=== PATIENT | female | born 1945 | race Caucasian/White ===

== ENCOUNTER 2021-05-01 11:24 | Emergency (ER) | payer MEDICARE ==
[2021-05-01] MEDS ORDERED: Ondansetron 4 MG/2 ML SDV IVPUSH ONE (11:48)
[2021-05-01] MEDS ORDERED: Acetaminophen 325 MG Tab PO ONE (11:48)
--- NOTE | 2021-05-01 11:57 | EDM.PDOC ---
ED HPI GENERAL MEDICAL PROBLEM - General Chief Complaint: General Stated Complaint: [facility] Time Seen by Provider: 05/01/21 11:40 Source of Information: Reports: Patient, EMS History Limitations: Reports: Altered Mental Status (Cruz is mildly confused and disoriented to time) - History of Present Illness INITIAL COMMENTS - FREE TEXT/NARRATIVE: 76-year-old female presents to the ED per [facility]. It is unclear who called the ambulance for her. She presents markedly febrile and is pleasantly confused at this time. She is unsure of dates and is disoriented to time. She is unsure how long she has been ill but she states at least 2 days. She has been taking some fluids but no solids for several days. She has a mild nonproductive cough. Denies sore throat. Denies headache. Denies any dysuria urgency frequency or diarrhea. She is nauseated all the time which limits his ability to eat. She is unclear exactly when her was diagnosed with COVID-19 in March. She came in for was middle beginning or recently. She states she was with him the whole time and did not contract COVID-19 illness. She has not been vaccinated Onset: Unknown/Unsure (Has been ill primarily bedridden for the last 2 to 3 days for sure.) Onset Date: 04/29/21 (She believes she has been ill for 2 days but again history is taken with a grain of salt) Duration: Day(s):, Getting Worse Location: Reports: Other (Generalized weakness. mild associated confusion. Markedly febrile. Mild nonproductive cough) Quality: Reports: Other (Generalized myalgia mild) Severity: Moderate (Confusion due to fever presumably.) Improves with: Reports: None Worsens with: Reports: Other (Worse with activity.) Context: Reports: Sick Contact ( was diagnosed with COVID-19 illness sometime in March. She cannot remember when). Denies: Activity, Exercise, Lifting Associated Symptoms: Reports: Confusion, Cough, cough w sputum (Reports very minimally productive cough of white sputum), Diaphoresis ( white sputum), Fever/Chills, Loss of Appetite, Malaise, Nausea/Vomiting, Weakness (Generalized weakness.). 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 She gets around with the aid of a cane. She reports this weakness is markedly worse with current illness.) Social & Family History - Tobacco Use Tobacco Use Status *Q: Never Tobacco User - Caffeine Use Caffeine Use: Reports: Coffee - Recreational Drug Use Recreational Drug Use: No - Living Situation & Occupation Living situation: Reports: , with Spouse Occupation: Retired ED ROS GENERAL - Review of Systems Review Of Systems: See Below Constitutional: Reports: Fever, Chills, Malaise, Weakness, Fatigue, Diaphoresis, Decreased Appetite, Weight Loss HEENT: Reports: Glasses. Denies: Ear Pain, Sinus Problem, Throat Pain Respiratory: Reports: Cough, Sputum (Occasional white sputum production). Denies: Shortness of Breath, Wheezing Cardiovascular: Reports: Lightheadedness. Denies: Chest Pain, Blood Pressure Problem, Claudication, Dyspnea on Exertion, Edema, Orthopnea, Palpitations, PND, Syncope, Other Endocrine: Reports: Fatigue GI/Abdominal: Reports: Anorexia, Nausea. Denies: Diarrhea, Vomiting : Reports: Frequency. Denies: Dysuria Musculoskeletal: Reports: Joint Pain, Muscle Pain (Generalized myalgia) Skin: Reports: Rash (Mild generalized red) Neurological: Reports: Confusion (Disoriented to time.), Gait Disturbance (Chronic gait disturbance and uses a cane to aid her gait. 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 She does not comment about bladder deficiencies). Denies: Headache, Numbness, Paresthesia, Tremors, Trouble Speaking Psychiatric: Reports: No Symptoms Hematologic/Lymphatic: Reports: No Symptoms Immunologic: Reports: No Symptoms ED EXAM, GENERAL - Physical Exam Exam: See Below Exam Limited By: Other (Disoriented to time.) General Appearance: Alert, No Apparent Distress, Other (She is very warm to palpation. Nurse's core temperature is 36.4 but she is more like 38.8. Heart rate is 102 at the bedside. Respiratory of 24 with O2 sats of 97% room air. BP 06/11/1973) Eye Exam: Bilateral Eye: Normal Inspection (No blepharal pallor or scleral icterus), PERRL Ears: Normal External Exam, Normal Canal, Normal TMs Throat/Mouth: Other (Tongue is very dry and coated. The oropharynx is otherwise normal) Head: Atraumatic, Normocephalic Neck: Normal Inspection, Supple, Non-Tender, Full Range of Motion. No: Lymphadenopathy (L), Lymphadenopathy (R) Respiratory/Chest: No Respiratory Distress, Lungs Clear, Normal Breath Sounds, No Accessory Muscle Use Cardiovascular: Normal Peripheral Pulses, No JVD, No Rub, Tachycardia (Resting tachycardia at the bedside 102/min) Peripheral Pulses: 2+: Carotid (L), Carotid (R), Posterior Tibial (L), Posterior Tibial (R), Dorsalis Pedis (L), Dorsalis Pedis (R) GI/Abdominal: Normal Bowel Sounds, Soft, Non-Tender, No Organomegaly, No Distention Back Exam: Normal Inspection, Full Range of Motion, Other (Has a midline scar upper lumbar spine). No: CVA Tenderness (L), CVA Tenderness (R) Extremities: Normal Inspection, Normal Range of Motion, Non-Tender, No Pedal Edema, Other (And assessed. She reports weakness in both lower extremities made worse by current febrile illness. She uses a cane to aid ambulation) Neurological: Alert. No: Oriented (Disoriented to time), Normal Cognition Psychiatric: Normal Affect, Normal Mood Skin Exam: Warm, Dry, Intact, Normal Color, No Rash, Other (Febrile.) #1 Interpretation EKG Date: 05/01/21 Time: 11:48 Rhythm: NSR Rate (Beats/Min): 99 P-Wave: Present QRS: Other (Early R wave transition consider right ventricular appear to be versus septal hypertrophy pattern. Tall R wave in lead I suggestive of left ventricular perjury pattern) ST-T: Other (T wave flattening V3 and inversion in lead III. Diffuse ST segment depression in leads I, aVL, lead II, aVF and leads V3 to V6 consider ischemia.) QT: Normal EKG Interpretation Comments: Abnormal ECG Course - Vital Signs Last Recorded V/S: Last Vital Signs Temp 37.7 C 05/01/21 18:57 Pulse 91 05/01/21 18:57 Resp 22 H 05/01/21 18:57 BP 125/76 05/01/21 18:57 Pulse Ox 100 05/01/21 18:57 - Orders/Labs/Meds Orders: Active Orders 24 hr Category Date Time Status Vital Signs [RC] Q15M Care 05/01/21 13:09 Active BLOOD CULTURE [MREF] Stat Lab 05/01/21 12:12 Received BLOOD CULTURE [MREF] Stat Lab 05/01/21 12:22 Received Acetaminophen [TylenoL] Med 05/01/21 15:48 Active 650 mg PO Q4H PRN Dextrose 5%-0.9% NaCl [Dextrose 5%-Normal Saline] 1,000 Med 05/01/21 12:00 Active ml IV ASDIRECTED EPINEPHrine [Adrenalin] Med 05/01/21 13:09 Active 0.3 mg IM ASDIRECTED PRN Famotidine [Pepcid] Med 05/01/21 13:09 Active 20 mg IVPUSH ASDIRECTED PRN Sodium Chloride 0.9% [Saline Flush] Med 05/01/21 13:15 Active 30 ml FLUSH ASDIRECTED diphenhydrAMINE [Benadryl] Med 05/01/21 13:09 Active 50 mg IVPUSH ASDIRECTED PRN methylPREDNISolone Sod Succ [Solu-MEDROL] Med 05/01/21 13:09 Active 125 mg IVPUSH ASDIRECTED PRN Blood Culture x2 Reflex Set [OM.PC] Stat Oth 05/01/21 11:49 Ordered Medication Orders Acetaminophen (Acetaminophen 325 Mg Tab) 650 mg PO Q4H PRN PRN Reason: Pain Diphenhydramine HCl (Diphenhydramine 50 Mg/Ml Sdv) 50 mg IVPUSH ASDIRECTED PRN PRN Reason: hypersensitivity reaction Epinephrine HCl (Epinephrine 1 Mg/Ml Sdv) 0.3 mg IM ASDIRECTED PRN PRN Reason: hypersensitivity reaction Famotidine (Famotidine 20 Mg/2 Ml Sdv) 20 mg IVPUSH ASDIRECTED PRN PRN Reason: hypersensitivity reaction Dextrose/Sodium Chloride (Dextrose 5%-Normal Saline) 1,000 mls @ 500 mls/hr IV ASDIRECTED REANNA Last Admin: 05/01/21 12:18 Dose: 500 mls/hr Documented by: CAITLYN Sodium Chloride (Normal Saline) 1,000 mls @ 500 mls/hr IV ASDIRECTED REANNA Methylprednisolone Sodium Succinate (Methylprednisolone Sodium Succinate 125 Mg/2 Ml Sdv) 125 mg IVPUSH ASDIRECTED PRN PRN Reason: hypersensitivity reaction Ondansetron HCl (Ondansetron 4 Mg/2 Ml Sdv) 4 mg IV Q6H PRN PRN Reason: Nausea/Vomiting Sodium Chloride (Sodium Chloride 0.9% 10 Ml Syringe) 30 ml FLUSH ASDIRECTED REANNA Labs: Laboratory Tests 05/01/21 05/01/21 05/01/21 Range/Units 11:38 11:38 11:38 WBC 12.18 H (3.98-10.04) K/mm3 RBC 5.59 H (3.98-5.22) M/mm3 Hgb 15.6 (11.2-15.7) gm/dl Hct 45.1 H (34.1-44.9) % MCV 80.7 (79.4-94.8) fl MCH 27.9 (25.6-32.2) pg MCHC 34.6 (32.2-35.5) g/dl RDW Std Deviation 40.9 (36.4-46.3) fL Plt Count 129 L (182-369) K/mm3 MPV 14.1 H (9.4-12.3) fl Neutrophils % (Manual) 90 H (40-60) % Band Neutrophils % 6 (0-10) % Lymphocytes % (Manual) 3 L (20-40) % Atypical Lymphs % 0 % Immat Monocytes % (Man) 0 Monocytes % (Manual) 1 L (2-10) % Eosinophils % (Manual) 0 L (0.7-5.8) % Basophils % (Manual) 0 L (0.1-1.2) Metamyelocytes % 0 Myelocytes % 0 Promyelocytes % 0 Blast Cells % 0 Plasma Cell % (Manual) 0 Nucleated RBCs 0.0 % Platelet Estimate Adequate RBC Morph Comment Normal PT 10.4 (9.7-12.0) SECONDS INR 0.93 Puncture Site ABG pH (7.35-7.45) ABG pCO2 (35.0-45.0) mmHg ABG pO2 (80.0-100.0) mmHg ABG HCO3 (22.0-26.0) meq/L ABG O2 Saturation (96.0-97.0) % ABG Base Excess (-2-2.0) Alberto Test O2 Delivery Device Sodium 133 L (136-145) mEq/L Potassium 4.0 (3.5-5.1) mEq/L Chloride 96 L (98-107) mEq/L Carbon Dioxide 20 L (21-32) mEq/L Anion Gap 21.0 H (5-15) BUN 40 H (7-18) mg/dL Creatinine 3.5 H (0.55-1.02) mg/dL Est Cr Clr Drug Dosing 10.13 mL/min Estimated GFR (MDRD) 13 (>60) mL/min BUN/Creatinine Ratio 11.4 L (14-18) Glucose 166 H (70-99) mg/dL Lactic Acid (0.4-2.0) mmol/L Calcium 9.4 (8.5-10.1) mg/dL Magnesium 1.7 L (1.8-2.4) mg/dL Total Bilirubin 1.0 (0.2-1.0) mg/dL AST 35 (15-37) U/L ALT 19 (14-59) U/L Alkaline Phosphatase 60 (46-116) U/L Troponin I < 0.017 (0.00-0.056) ng/mL C-Reactive Protein 20.1 H* (<1.0) mg/dL NT-Pro-B Natriuret Pep (0-125) pg/mL Total Protein 6.4 (6.4-8.2) g/dl Albumin 3.3 L (3.4-5.0) g/dl Globulin 3.1 gm/dL Albumin/Globulin Ratio 1.1 (1-2) Urine Color (Yellow) Urine Appearance (Clear) Urine pH (5.0-8.0) Ur Specific [place] (1.005-1.030) Urine Protein (Negative) Urine Glucose (UA) (Negative) Urine Ketones (Negative) Urine Occult Blood (Negative) Urine Nitrite (Negative) Urine Bilirubin (Negative) Urine Urobilinogen (0.2-1.0) Ur Leukocyte Esterase (Negative) Urine RBC (0-5) /hpf Urine WBC (0-5) /hpf Ur Squamous Epith Cells (0-5) /hpf Urine Bacteria (FEW) /hpf Urine Mucus (FEW) /hpf Ketones (0.0-0.3) mM SARS-CoV-2 RNA (SERENA) (NEGATIVE) 05/01/21 05/01/21 05/01/21 Range/Units 11:38 11:38 11:38 WBC (3.98-10.04) K/mm3 RBC (3.98-5.22) M/mm3 Hgb (11.2-15.7) gm/dl Hct (34.1-44.9) % MCV (79.4-94.8) fl MCH (25.6-32.2) pg MCHC (32.2-35.5) g/dl RDW Std Deviation (36.4-46.3) fL Plt Count (182-369) K/mm3 MPV (9.4-12.3) fl Neutrophils % (Manual) (40-60) % Band Neutrophils % (0-10) % Lymphocytes % (Manual) (20-40) % Atypical Lymphs % % Immat Monocytes % (Man) Monocytes % (Manual) (2-10) % Eosinophils % (Manual) (0.7-5.8) % Basophils % (Manual) (0.1-1.2) Metamyelocytes % Myelocytes % Promyelocytes % Blast Cells % Plasma Cell % (Manual) Nucleated RBCs % Platelet Estimate RBC Morph Comment PT (9.7-12.0) SECONDS INR Puncture Site ABG pH (7.35-7.45) ABG pCO2 (35.0-45.0) mmHg ABG pO2 (80.0-100.0) mmHg ABG HCO3 (22.0-26.0) meq/L ABG O2 Saturation (96.0-97.0) % ABG Base Excess (-2-2.0) Alberto Test O2 Delivery Device Sodium (136-145) mEq/L Potassium (3.5-5.1) mEq/L Chloride (98-107) mEq/L Carbon Dioxide (21-32) mEq/L Anion Gap (5-15) BUN (7-18) mg/dL Creatinine (0.55-1.02) mg/dL Est Cr Clr Drug Dosing mL/min Estimated GFR (MDRD) (>60) mL/min BUN/Creatinine Ratio (14-18) Glucose (70-99) mg/dL Lactic Acid 2.2 H* (0.4-2.0) mmol/L Calcium (8.5-10.1) mg/dL Magnesium (1.8-2.4) mg/dL Total Bilirubin (0.2-1.0) mg/dL AST (15-37) U/L ALT (14-59) U/L Alkaline Phosphatase (46-116) U/L Troponin I (0.00-0.056) ng/mL C-Reactive Protein (<1.0) mg/dL NT-Pro-B Natriuret Pep 2684 H (0-125) pg/mL Total Protein (6.4-8.2) g/dl Albumin (3.4-5.0) g/dl Globulin gm/dL Albumin/Globulin Ratio (1-2) Urine Color (Yellow) Urine Appearance (Clear) Urine pH (5.0-8.0) Ur Specific [place] (1.005-1.030) Urine Protein (Negative) Urine Glucose (UA) (Negative) Urine Ketones (Negative) Urine Occult Blood (Negative) Urine Nitrite (Negative) Urine Bilirubin (Negative) Urine Urobilinogen (0.2-1.0) Ur Leukocyte Esterase (Negative) Urine RBC (0-5) /hpf Urine WBC (0-5) /hpf Ur Squamous Epith Cells (0-5) /hpf Urine Bacteria (FEW) /hpf Urine Mucus (FEW) /hpf Ketones 0.07 (0.0-0.3) mM SARS-CoV-2 RNA (SERENA) (NEGATIVE) 05/01/21 05/01/21 05/01/21 Range/Units 12:05 14:12 15:50 WBC (3.98-10.04) K/mm3 RBC (3.98-5.22) M/mm3 Hgb (11.2-15.7) gm/dl Hct (34.1-44.9) % MCV (79.4-94.8) fl MCH (25.6-32.2) pg MCHC (32.2-35.5) g/dl RDW Std Deviation (36.4-46.3) fL Plt Count (182-369) K/mm3 MPV (9.4-12.3) fl Neutrophils % (Manual) (40-60) % Band Neutrophils % (0-10) % Lymphocytes % (Manual) (20-40) % Atypical Lymphs % % Immat Monocytes % (Man) Monocytes % (Manual) (2-10) % Eosinophils % (Manual) (0.7-5.8) % Basophils % (Manual) (0.1-1.2) Metamyelocytes % Myelocytes % Promyelocytes % Blast Cells % Plasma Cell % (Manual) Nucleated RBCs % Platelet Estimate RBC Morph Comment PT (9.7-12.0) SECONDS INR Puncture Site ABG pH (7.35-7.45) ABG pCO2 (35.0-45.0) mmHg ABG pO2 (80.0-100.0) mmHg ABG HCO3 (22.0-26.0) meq/L ABG O2 Saturation (96.0-97.0) % ABG Base Excess (-2-2.0) Alberto Test O2 Delivery Device Sodium (136-145) mEq/L Potassium (3.5-5.1) mEq/L Chloride (98-107) mEq/L Carbon Dioxide (21-32) mEq/L Anion Gap (5-15) BUN (7-18) mg/dL Creatinine (0.55-1.02) mg/dL Est Cr Clr Drug Dosing mL/min Estimated GFR (MDRD) (>60) mL/min BUN/Creatinine Ratio (14-18) Glucose (70-99) mg/dL Lactic Acid 2.1 H* (0.4-2.0) mmol/L Calcium (8.5-10.1) mg/dL Magnesium (1.8-2.4) mg/dL Total Bilirubin (0.2-1.0) mg/dL AST (15-37) U/L ALT (14-59) U/L Alkaline Phosphatase (46-116) U/L Troponin I (0.00-0.056) ng/mL C-Reactive Protein (<1.0) mg/dL NT-Pro-B Natriuret Pep (0-125) pg/mL Total Protein (6.4-8.2) g/dl Albumin (3.4-5.0) g/dl Globulin gm/dL Albumin/Globulin Ratio (1-2) Urine Color Yellow (Yellow) Urine Appearance Clear (Clear) Urine pH 5.5 (5.0-8.0) Ur Specific [place] 1.020 (1.005-1.030) Urine Protein 2+ H (Negative) Urine Glucose (UA) Negative (Negative) Urine Ketones Negative (Negative) Urine Occult Blood 1+ H (Negative) Urine Nitrite Negative (Negative) Urine Bilirubin Negative (Negative) Urine Urobilinogen 0.2 (0.2-1.0) Ur Leukocyte Esterase Negative (Negative) Urine RBC 5-10 H (0-5) /hpf Urine WBC 0-5 (0-5) /hpf Ur Squamous Epith Cells 0-5 (0-5) /hpf Urine Bacteria Moderate H (FEW) /hpf Urine Mucus Few (FEW) /hpf Ketones (0.0-0.3) mM SARS-CoV-2 RNA (SERENA) Positive H (NEGATIVE) 05/01/21 Range/Units 15:50 WBC (3.98-10.04) K/mm3 RBC (3.98-5.22) M/mm3 Hgb (11.2-15.7) gm/dl Hct (34.1-44.9) % MCV (79.4-94.8) fl MCH (25.6-32.2) pg MCHC (32.2-35.5) g/dl RDW Std Deviation (36.4-46.3) fL Plt Count (182-369) K/mm3 MPV (9.4-12.3) fl Neutrophils % (Manual) (40-60) % Band Neutrophils % (0-10) % Lymphocytes % (Manual) (20-40) % Atypical Lymphs % % Immat Monocytes % (Man) Monocytes % (Manual) (2-10) % Eosinophils % (Manual) (0.7-5.8) % Basophils % (Manual) (0.1-1.2) Metamyelocytes % Myelocytes % Promyelocytes % Blast Cells % Plasma Cell % (Manual) Nucleated RBCs % Platelet Estimate RBC Morph Comment PT (9.7-12.0) SECONDS INR Puncture Site Rt radial ABG pH 7.43 (7.35-7.45) ABG pCO2 28.2 L (35.0-45.0) mmHg ABG pO2 65.0 L (80.0-100.0) mmHg ABG HCO3 18.2 L (22.0-26.0) meq/L ABG O2 Saturation 94.1 L (96.0-97.0) % ABG Base Excess -4.5 L (-2-2.0) Alberto Test Positive O2 Delivery Device Room air Sodium (136-145) mEq/L Potassium (3.5-5.1) mEq/L Chloride (98-107) mEq/L Carbon Dioxide (21-32) mEq/L Anion Gap (5-15) BUN (7-18) mg/dL Creatinine (0.55-1.02) mg/dL Est Cr Clr Drug Dosing mL/min Estimated GFR (MDRD) (>60) mL/min BUN/Creatinine Ratio (14-18) Glucose (70-99) mg/dL Lactic Acid (0.4-2.0) mmol/L Calcium (8.5-10.1) mg/dL Magnesium (1.8-2.4) mg/dL Total Bilirubin (0.2-1.0) mg/dL AST (15-37) U/L ALT (14-59) U/L Alkaline Phosphatase (46-116) U/L Troponin I (0.00-0.056) ng/mL C-Reactive Protein (<1.0) mg/dL NT-Pro-B Natriuret Pep (0-125) pg/mL Total Protein (6.4-8.2) g/dl Albumin (3.4-5.0) g/dl Globulin gm/dL Albumin/Globulin Ratio (1-2) Urine Color (Yellow) Urine Appearance (Clear) Urine pH (5.0-8.0) Ur Specific [place] (1.005-1.030) Urine Protein (Negative) Urine Glucose (UA) (Negative) Urine Ketones (Negative) Urine Occult Blood (Negative) Urine Nitrite (Negative) Urine Bilirubin (Negative) Urine Urobilinogen (0.2-1.0) Ur Leukocyte Esterase (Negative) Urine RBC (0-5) /hpf Urine WBC (0-5) /hpf Ur Squamous Epith Cells (0-5) /hpf Urine Bacteria (FEW) /hpf Urine Mucus (FEW) /hpf Ketones (0.0-0.3) mM SARS-CoV-2 RNA (SERENA) (NEGATIVE) Meds: Medications Generic Name Dose Route Start Last Admin Trade Name Lindsay PRN Reason Stop Dose Admin Acetaminophen 650 mg 05/01/21 15:48 Acetaminophen 325 Mg Tab PO Q4H PRN Pain Diphenhydramine HCl 50 mg 05/01/21 13:09 Diphenhydramine 50 Mg/Ml Sdv IVPUSH ASDIRECTED PRN hypersensitivity reaction Epinephrine HCl 0.3 mg 05/01/21 13:09 Epinephrine 1 Mg/Ml Sdv IM ASDIRECTED PRN hypersensitivity reaction Famotidine 20 mg 05/01/21 13:09 Famotidine 20 Mg/2 Ml Sdv IVPUSH ASDIRECTED PRN hypersensitivity reaction Dextrose/Sodium Chloride 1,000 mls @ 500 mls/hr 05/01/21 12:00 05/01/21 12:18 Dextrose 5%-Normal Saline IV 500 mls/hr ASDIRECTED REANNA Administration Sodium Chloride 1,000 mls @ 500 mls/hr 05/01/21 16:00 Normal Saline IV ASDIRECTED REANNA Methylprednisolone Sodium Succinate 125 mg 05/01/21 13:09 Methylprednisolone Sodium Succinate 125 Mg/2 Ml Sdv IVPUSH ASDIRECTED PRN hypersensitivity reaction Ondansetron HCl 4 mg 05/01/21 16:40 Ondansetron 4 Mg/2 Ml Sdv IV Q6H PRN Nausea/Vomiting Sodium Chloride 30 ml 05/01/21 13:15 Sodium Chloride 0.9% 10 Ml Syringe FLUSH ASDIRECTED REANNA Discontinued Medications Generic Name Dose Route Start Last Admin Trade Name Lindsay PRN Reason Stop Dose Admin Acetaminophen 975 mg 05/01/21 11:48 05/01/21 12:18 Acetaminophen 325 Mg Tab PO 05/01/21 11:49 975 mg ONETIME ONE Administration Dexamethasone 10 mg 05/01/21 19:09 05/01/21 19:42 Dexamethasone 10 Mg/Ml Sdv IVPUSH 05/01/21 19:10 10 mg ONETIME ONE Administration Enoxaparin Sodium 40 mg 05/02/21 09:00 Enoxaparin 40 Mg/0.4 Ml Syringe SUBCUT DAILY REANNA Furosemide 20 mg 05/01/21 13:09 05/01/21 15:21 Furosemide 20 Mg/2 Ml Vial IVPUSH 05/01/21 13:10 20 mg ONETIME ONE Administration Bamlanivimab 700 mg/ 310 mls @ 310 mls/hr 05/01/21 14:00 05/01/21 14:11 Etesevimab 1,400 mg/ Sodium IV 05/01/21 14:59 310 mls/hr Chloride ONETIME ONE Administration Ceftriaxone Sodium 2 gm/ 100 mls @ 200 mls/hr 05/01/21 15:49 05/01/21 16:48 Sodium Chloride IV 05/01/21 16:18 200 mls/hr ONETIME ONE Administration Azithromycin 500 mg/ Sodium 250 mls @ 250 mls/hr 05/01/21 15:50 05/01/21 17:12 Chloride IV 05/01/21 16:49 250 mls/hr ONETIME ONE Administration Remdesivir 200 mg/ Sodium 250 mls @ 250 mls/hr 05/01/21 16:40 Chloride IV 05/01/21 16:41 ONETIME ONE Remdesivir 100 mg/ Sodium 100 mls @ 100 mls/hr 05/02/21 16:45 Chloride IV 05/05/21 17:44 Q24H REANNA Azithromycin 500 mg/ Sodium 250 mls @ 250 mls/hr 05/02/21 15:00 Chloride IV Q24H REANNA Ceftriaxone Sodium 2 gm/ 100 mls @ 200 mls/hr 05/02/21 15:00 Sodium Chloride IV 05/05/21 15:29 Q24H REANNA Levetiracetam 500 mg/ Sodium 105 mls @ 400 mls/hr 05/01/21 19:09 05/01/21 19:46 Chloride IV 05/01/21 19:23 400 mls/hr ONETIME ONE Administration Ondansetron HCl 4 mg 05/01/21 11:48 05/01/21 12:18 Ondansetron 4 Mg/2 Ml Sdv IVPUSH 05/01/21 11:49 4 mg ONETIME ONE Administration - Radiology Interpretation Free Text/Narrative:: 76-year-old female presents to the ED per [facility] ambulance from home here in [place]. The history suggest that her was diagnosed with COVID-19 illness sometime in March. Patient cannot recall whether this was early March mid March or late March. She was with him the whole time and believes she did not contract COVID-19 illness. She presents now due to high fever and being bedridden for the last 3 days due to fever and loss of appetite. She reports chronic nausea without vomiting. No diarrhea. Does have a mild nonproductive cough. Denies sore throat headache. Does have generalized myalgia. Suspect COVID-19 illness. Septic work-up will be commenced. 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 Denies any current genitourinary complaints. With her confusion however her history is to be taken with a grain of salt. Septic work- up to be obtained including lactic acid blood cultures x2. COVID-19 screen. Chest x-ray and ECG to be done IV fluids will be D5 normal saline at 500 mils an hour - Re-Assessments/Exams Free Text/Narrative Re-Assessment/Exam: 05/01/21 12:40: Chest x-ray reveals patchy areas of increased density within the left lung as well as within the right upper lung. Heart is moderately enlarged. Upper mediastinum is normal bony structures are osteopenic. Findings within both lungs suspicious for COVID-19 pneumonia. 05/01/21 13:01 White count is elevated at 12.18. Differential is pending. Hemoglobin is 15.6 with hematocrit of 45.1 platelet count is low normal at 129,000. PT is 10.4 with an INR of 0.93. Sodium is low at 133. Potassium is 4.0. Chloride 96 with a bicarb of 20 which is low anion gap is 21 which is elevated. BUN is 40 with a creatinine of 3.5 and a GFR of only 13. Glucose is 166. Calcium is 9.4 magnesium is low at 1.7 liver function normal troponin I is less than 0.017 C-reactive protein is 20.1 BNP is 2684. Total protein is 6.4 with an albumin fraction of 3.3 which is low. COVID-19 screen is positive. Lactic acid and serum ketones are not yet back she remains mildly confused again I believe this is secondary to markedly elevated fever. Daughter confirms my suspicion that her mom rarely sees a physician in he has had uncontrolled hypertension for many years which is contributing to her and her enlarged heart and congestive failure made worse by fever. Her daughter is in the room at this time and is a nurse. She concedes that her father did get monoclonal antibodies when he was in the hospital in the early part of April not March. I believe he was diagnosed April 20 and received monoclonal antibodies on April 24. This would make more sense for her chauncey the illness at this time her O2 sats are staying 94 to 95% room air. She will be given the paperwork for monoclonal antibodies to read but daughter feels that she will go ahead with the infusion. 05/01/21 13:11 I have spoken with the patient and her daughter who is acting as her care provider at this time. They were provided information about monoclonal antibody infusion. I offered them the fax sheet for patients and patients and caregivers for monoclonal antibody therapy to read and review. Stated that therapy has been approved by an emergency authorization process and is not fully been FDA reviewed or approved. I shared potential risk from the therapy including adverse reaction such as hives and to include potential angioedema and . Offered the opportunity to ask questions but they really had none since her had received monoclonal antibodies earlier this month for his COVID-19 illness. The patient and her proxy I her daughter voiced understanding and agreed to proceed with treatment for herself Kavitha Colvin. 05/01/21 13:48 Lactic acid returned mildly elevated at 2.2. She will receive sufficient intravenous fluids to reverse this. Serum ketones are 0.07 05/01/21 14:27 Patient remains very confused and in fact pulled out her IV and required IV restart prior to getting her monoclonal antibody infusion. It appears she is not going to be fit to go home. My impression is that her delirium is secondary to fever which is improved after Tylenol was given upon my initial evaluation. She does have mild lactic acidosis and a repeat lactic acid will be repeated at 1600 hrs. today. I have discussed the case with Dr. Aragon on-call hospitalist with a view to having her admitted to the hospital. 05/01/21: 14:55: Dr. Aragon has seen the patient in the ED and has okayed admission to the med surgery floor once she has done her monoclonal antibody infusion. Repeat lactic acid is set up for 1600 hrs. today. 05/01/21 15:52 Upon looking at her labs at this time she is due for lactic acid at 1600 hrs. She once a bit gain is becoming more confused and I suspect fever return is likely the cause. However after discussion with Dr. Aragon decision made to admit the patient to the intensive care unit after CT of the head and ABGs have been done. Her labs reveal an elevated white count at 12.06 with a left shift of 90% neutrophils and 6% bands suggesting bacterial source of sepsis. She will therefore be treated more aggressively with IV fluids to improve her lactic acidosis and IV antibiotics Rocephin 2 g IV and azithromycin 500 mg IV at this time. Patient has completed her IV monoclonal antibody treatment. 05/01/21 16:51 ABGs revealed a pH of 7.43. PCO2 is 28.2 PO2 is 65.0. Bicarb is 18.2 O2 saturations are 94.1% on room air. CT of the head has been performed without any contrast. It does reveal some bleeding in the left frontal temporal lobe at the base of the brain concerning for possible fall related injury. There is mild midline shift and I will wait for the over read by radiology. 05/01/21 18:11- I have been on the the phone discussing the case with Dr. Melendez in the emergency department at [facility] in [facility]. We are awaiting consultation with neurosurgeon Dr. Valdez who was not available at the time of the initial consult Tatian on the phone. Essentially it appears the patient is overall accepted by that facility as they do have beds. She would be transferred to that facility by air ambulance. I will discussed with Dr. Valdez whether he wishes to pursue treatment with a dose of Keppra and dexamethasone 05/01/21 18:45: I did speak with on-call neurosurgeon Dr. Valdez and he agrees with the patient being transferred to [facility] for further evaluation and treatment. He does recommend dexamethasone 10 mg IV and Keppra 500 mg IV to prevent any further seizures and to help reduce the edema surrounding the tumor. Patient be transferred to [place] per air ambulance. They will be sending their own airplane our way. 05/01/21 19:25: Paperwork has been filled out to allow transport to [facility] in [facility]. The patient is quite confused and I believe actually more confused than she was earlier today. She is very mildly warm to palpation and is not due for Tylenol for another 2 hours. Her daughter will be remaining here in [place] to look after her father who is recovering from COVID-19 illness before she can make her way back to [place] where she resides. Patient was transferred to [facility] due to COVID-19 illness and there ability to have a bed available for her. 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 Departure - Departure Time of Disposition: 20:00 Disposition: DC/Tfer to Acute Hospital 02 Condition: Serious Clinical Impression: Pneumonia due to COVID-19 virus, Delirium due to another medical condition, Febrile illness, acute, Intracranial mass, Chronic renal insufficiency, stage IV (severe), Lactic acidosis, Neutrophilic leukocytosis Congestive heart failure Qualifiers: Heart failure type: unspecified Heart failure chronicity: acute on chronic Qualified Code(s): I50.9 - Heart failure, unspecified - Discharge Information *PRESCRIPTION DRUG MONITORING PROGRAM REVIEWED*: Not Applicable *COPY OF PRESCRIPTION DRUG MONITORING REPORT IN PATIENT DAVE: Not Applicable Sepsis Event Note (ED) - Evaluation Sepsis Screening Result: No Definite Risk - Focused Exam Vital Signs: Vital Signs Temp Temp Pulse Resp BP Pulse Ox 05/01/21 14:45 37.1 C 91 24 H 137/76 95 05/01/21 14:12 36.8 C 94 22 H 126/70 93 L 05/01/21 12:48 37.1 C 05/01/21 11:34 36.4 C 102 H 20 131/74 97 - My Orders Last 24 Hours: My Active Orders 05/01/21 11:49 Blood Culture x2 Reflex Set [OM.PC] Stat 05/01/21 12:00 Dextrose 5%-0.9% NaCl [Dextrose 5%-Normal Saline] 1,000 ml IV ASDIRECTED 05/01/21 12:12 BLOOD CULTURE [MREF] Stat 05/01/21 12:22 BLOOD CULTURE [MREF] Stat 05/01/21 13:09 Vital Signs [RC] Q15M EPINEPHrine [Adrenalin] 0.3 mg IM ASDIRECTED PRN Famotidine [Pepcid] 20 mg IVPUSH ASDIRECTED PRN diphenhydrAMINE [Benadryl] 50 mg IVPUSH ASDIRECTED PRN methylPREDNISolone Sod Succ [Solu-MEDROL] 125 mg IVPUSH ASDIRECTED PRN 05/01/21 13:15 Sodium Chloride 0.9% [Saline Flush] 30 ml FLUSH ASDIRECTED 05/01/21 15:48 Acetaminophen [TylenoL] 650 mg PO Q4H PRN - Assessment/Plan Last 24 Hours: My Active Orders 05/01/21 11:49 Blood Culture x2 Reflex Set [OM.PC] Stat 05/01/21 12:00 Dextrose 5%-0.9% NaCl [Dextrose 5%-Normal Saline] 1,000 ml IV ASDIRECTED 05/01/21 12:12 BLOOD CULTURE [MREF] Stat 05/01/21 12:22 BLOOD CULTURE [MREF] Stat 05/01/21 13:09 Vital Signs [RC] Q15M EPINEPHrine [Adrenalin] 0.3 mg IM ASDIRECTED PRN Famotidine [Pepcid] 20 mg IVPUSH ASDIRECTED PRN diphenhydrAMINE [Benadryl] 50 mg IVPUSH ASDIRECTED PRN methylPREDNISolone Sod Succ [Solu-MEDROL] 125 mg IVPUSH ASDIRECTED PRN 05/01/21 13:15 Sodium Chloride 0.9% [Saline Flush] 30 ml FLUSH ASDIRECTED 05/01/21 15:48 Acetaminophen [TylenoL] 650 mg PO Q4H PRN
[2021-05-01] MEDS ORDERED: Dextrose 5%-0.9% NaCl 1,000 ML IV SCH (12:00)
--- NOTE | 2021-05-01 12:49 | CR ---
Chest: Frontal view of the chest was obtained. Comparison: No prior study is available. Patchy areas of increased density are seen within the left lung as well as within the right upper lung. Heart is enlarged. Upper mediastinum is normal. Bony structures are osteopenic. Impression: 1. Findings within both lungs which are suspicious for COVID pneumonia. Please correlate. Diagnostic code #3
[2021-05-01] MEDS ORDERED: EPINEPHrine 1 MG/ML SDV IM PRN (13:09)
[2021-05-01] MEDS ORDERED: diphenhydrAMINE 50 MG/ML SDV IVPUSH PRN (13:09)
[2021-05-01] MEDS ORDERED: Famotidine 20 MG/2 ML SDV IVPUSH PRN (13:09)
[2021-05-01] MEDS ORDERED: methylPREDNISolone Sodium Succinate 125 MG/2 ML SDV IVPUSH PRN (13:09)
[2021-05-01] MEDS ORDERED: Furosemide 20 MG/2 ML VIAL IVPUSH ONE (13:09)
[2021-05-01] MEDS ORDERED: Sodium Chloride 0.9% 10 ML Syringe FLUSH SCH (13:15)
[2021-05-01] MEDS ORDERED: Acetaminophen 325 MG Tab PO PRN (15:48)
[2021-05-01] MEDS ORDERED: cefTRIAXone 2 GM in Sodium Chloride 0.9% 100 ML IV ONE (15:49)
[2021-05-01] MEDS ORDERED: Azithromycin 500 MG in Sodium Chloride 0.9% 250 ML IV ONE (15:50)
[2021-05-01] MEDS ORDERED: Sodium Chloride 0.9% 1,000 ML IV SCH (16:00)
[2021-05-01] MEDS ORDERED: REMDESIVIR 200 MG in Sodium Chloride 0.9% 250 ML IV ONE (16:40)
[2021-05-01] MEDS ORDERED: Ondansetron 4 MG/2 ML SDV IV PRN (16:40)
--- NOTE | 2021-05-01 17:13 | CT ---
Head CT Technique: Multiple axial sections through the brain were obtained. Intravenous contrast was not utilized. Reconstructed coronal and sagittal images were obtained. Comparison: No prior intracranial imaging is available. Findings: Slightly increased density mass appears to be present within the inferior left posterior frontal region. Margins of this are difficult to determine but measures at least 5.1 cm in greatest dimension. This mass shows surrounding edema within the white matter. There is midline shift being noted by approximately 8 mm. Difficult to exclude small areas of hemorrhage within this mass although this may also represent ill-defined calcifications. Impression: 1. Large mass off the inferior posterior frontal region on the left side. This measures at least 5.1 cm. Slight scattered increased density within this mass which could represent small areas of hemorrhage although may also represent ill-defined calcifications. 2. Diffuse surrounding edema is noted. 3. Midline shift noted of 8 mm. Diagnostic code #9 Preliminary report was discussed by telephone with Dr. Watson on 05/01/21 at 5:08 PM [facility].
[2021-05-01] MEDS ORDERED: levETIRAcetam 500 MG in Sodium Chloride 0.9% 100 ML IV ONE (19:09)
[2021-05-01] MEDS ORDERED: Dexamethasone 10 MG/ML SDV IVPUSH ONE (19:09)
[2021-05-02] MEDS ORDERED: Enoxaparin 40 MG/0.4 ML Syringe SUBCUT SCH (09:00)
[2021-05-02] MEDS ORDERED: cefTRIAXone 2 GM in Sodium Chloride 0.9% 100 ML IV SCH (15:00)
[2021-05-02] MEDS ORDERED: Azithromycin 500 MG in Sodium Chloride 0.9% 250 ML IV SCH (15:00)
[2021-05-02] MEDS ORDERED: REMDESIVIR 100 MG in Sodium Chloride 0.9% 100 ML IV SCH (16:45)
== END 2021-05-01 20:55 ==
LOC: JD.ED 11:24 → UNDOADMIN 15:52 → JD.MS 15:52 → JD.ICU 16:38 → JD.MS 16:38
DX: U07.1 COVID-19 (principal); J12.82 Pneumonia due to coronavirus disease 2019; N18.4 Chronic kidney disease, stage 4 (severe); I50.9 Heart failure, unspecified; G93.89 Other specified disorders of brain; E87.2 Acidosis; D72.829 Elevated white blood cell count, unspecified; F05 Delirium due to known physiological condition; R94.31 Abnormal electrocardiogram [ECG] [EKG]; Z88.8 Allergy status to other drugs, medicaments and biological substances; Z88.5 Allergy status to narcotic agent
CPT/HCPCS: 36415; 36600; 51702; 70450; 71045; 80053; 81001; 82009; 82803; 83605; 83735; 83880; 84484; 85007; 85027; 85610; 86140; 87040; 93005; 96365; 96367; 96375; 99285; A9270; J0456; J0696; J1100; J1940; J1953; J2405; J7042; J7050; M0245; Q0245; U0002